=== PATIENT | female | born 1975 | race Caucasian/White ===

== ENCOUNTER 2025-01-25 09:03 | Observation (INO) ==
--- NOTE | 2024-12-27 11:04 | PAT Medication Instructions ---
Medication Instructions Date of Service December 27, 2024 Home Medications ascorbic acid (vitamin C) 500 mg capsule 500 mg PO DAILY aspirin 81 mg chewable tablet 81 mg PO HS atorvastatin 40 mg tablet 40 mg PO HS ferrous sulfate 325 mg (65 mg iron) tablet (Feosol) 325 mg PO DAILY metformin 500 mg tablet 500 mg PO BID semaglutide 2 mg/dose (8 mg/3 mL) subcutaneous pen injector (Ozempic) 2 mg subcut WK spironolactone 25 mg tablet 25 mg PO QAM albuterol sulfate 90 mcg/actuation aerosol inhaler 1 inh inhalation QID PRN Wheezing ASK your prescriber and surgeon aspirin 81 mg chewable tablet 81 mg PO HS STOP 7 days prior to surgery (if okay with prescriber) semaglutide 2 mg/dose (8 mg/3 mL) subcutaneous pen injector (Ozempic) 2 mg subcut WK DO NOT take the morning of surgery ascorbic acid (vitamin C) 500 mg capsule 500 mg PO DAILY ferrous sulfate 325 mg (65 mg iron) tablet (Feosol) 325 mg PO DAILY metformin 500 mg tablet 500 mg PO BID spironolactone 25 mg tablet 25 mg PO QAM Take morning of surgery With a small sip of water, OTHERWISE NOTHING TO EAT OR DRINK AFTER MIDNIGHT: albuterol sulfate 90 mcg/actuation aerosol inhaler 1 inh inhalation QID PRN Wheezing (use if needed; please bring rescue inhaler with you to hospital day of surgery if possible) Take evening before surgery atorvastatin 40 mg tablet 40 mg PO HS metformin 500 mg tablet 500 mg PO BID albuterol sulfate 90 mcg/actuation aerosol inhaler 1 inh inhalation QID PRN Wheezing (if needed) Other Notes If you have any questions please call us at [phone] or [phone] or [phone] or [phone]
--- NOTE | 2025-01-01 14:47 | Anesthesiology Consultation ---
Date of Service January 01, 2025 Assessment & Plan (1) Encounter for pre-operative examination: - Infectious disease screening: Per assessment on 01/01/25- No known recent infectious disease contacts or current infectious disease symptoms. - Outpatient joint assessment: Pt currently scheduled for inpatient pathway. If surgeon requests review for outpatient joint pathway, patient is not recommended candidate for outpatient joint program from anesthesia standpoint based on available information. - Semaglutide instructions: Patient informed by PAT to stop 7 days prior to surgery- voiced understanding. DOS 01/25. Advised last dose to be 01/13. - Check BSG DOS - Check coags DOS: Received message that preop coags hemolyzed. Message sent to surgeon's office to make them aware. Received response that surgeon wishes for coags redraw to be done DOS- order placed. - Hx neuraxial issues: Patient reports severe headache (presumed spinal headache) after neuraxial anesthesia with remote, initial . Patient description of events sounds like patient had subsequent blood patch for CSF leak. Patient indicates neuraxial anesthesia used with subsequent c-sections without issue. Chart Review Chart Review: Acceptable Risk for Surgery and Patient seen in Pre Admission Testing Teaching & Discussion Pre-Anesthesia Teaching/Discussion Notes: Instructed NPO after midnight before surgery,except medications with 15 cc of water. Medication instructions provided according to the PAT guidelines. History Surgery Operation Date: 01/25/25 10:00 Proposed Procedures p Left Total Knee Arthroplasty - Reuben Haq, Height/Weight Height: 5 ft 9 in Weight: 133 kg Allergies Allergy/AdvReac Type Severity Reaction Status Date / Time aspirin Allergy Nosebleeds Verified 01/01/25 15:21 with high doses (tolerates lower dose) Medications Home Medications Medication Instructions Recorded Confirmed Last Taken ascorbic acid (vitamin C) 500 mg 500 mg PO DAILY 09/11/24 12/27/24 Unknown capsule aspirin 81 mg chewable tablet 81 mg PO HS 09/11/24 12/27/24 Unknown atorvastatin 40 mg tablet 40 mg PO HS 09/11/24 12/27/24 Unknown ferrous sulfate 325 mg (65 mg 325 mg PO DAILY 09/11/24 12/27/24 Unknown iron) tablet (Feosol) metformin 500 mg tablet 500 mg PO BID 09/11/24 12/27/24 Unknown semaglutide 2 mg/dose (8 mg/3 mL) 2 mg subcut WK 09/11/24 12/27/24 Unknown subcutaneous pen injector (Ozempic) spironolactone 25 mg tablet 25 mg PO QAM 09/11/24 12/27/24 Unknown albuterol sulfate 90 mcg/actuation 1 inh inhalation QID PRN Wheezing 12/27/24 12/27/24 Unknown aerosol inhaler Past Medical History Medical History Acne Reason for spironolactone per patient Anxiety No meds Asthma Diabetes Hyperlipidemia Iron deficiency anemia Morbid obesity Osteoarthritis Exercise / Class Metabolic Activity II 4-5 Yardwork/Stairs/Walk up hill Past Family History Family History Father Lung cancer Diabetes Heart disease Past Surgical History Surgical History H/O wisdom tooth extraction History of section x3 Hx of hernia repair Past Anesthesia History No Family Hx of Anesthesia Complications and Other * Patient reports severe headache (presumed spinal headache) after neuraxial anesthesia with remote, initial . Patient description of events sounds like patient had subsequent blood patch for CSF leak. Patient indicates neuraxial anesthesia used with subsequent c-sections without issue. History of PONV No Hx of PONV Social History Smoking Status: Never smoker Do You Dip or Chew Tobacco: No Hx Alcohol Use: Yes alcohol intake frequency: holidays/special occasions only Hx Substance Use: No substance use type: does not use Review of Systems Chronic cough x years, at baseline. Patient denies chest pain, shortness of breath, dyspnea on exertion, fever, chills, wheezing, palpitations. Physical Exam Vital Signs BP 114/75 P 67 TEMP 98.3 SP02 97%RA RESP 16 Physical Full cervical extension range of motion. Full TMJ range of motion. TMD >3.5 finger breaths Mallampati Score II Dentition: missing molars Lungs: clear throughout to auscultation Cardiac: regular rate and rhythm, no murmurs noted Spine: normal Carotid arteries: negative bruit Extremities: no LE edema Lab Results Anesthesia Preop Results Results Anesthesia Widget: WBC 7.82 K/ul (4.8-10.8) 01/01/25 Hgb 13.7 g/dl (12.0-16.0) 01/01/25 Hct 41.2 % (37.0-47.0) 01/01/25 Plt 310 K/uL (130-400) 01/01/25 Na 137 mmol/L (136-145) 01/01/25 K 3.9 mmol/L (3.5-5.1) 01/01/25 Cl 106 mmol/L (98-107) 01/01/25 CO2 26 mmol/L (21-32) 01/01/25 BUN 9 mg/dl (6-23) 01/01/25 Creat 0.60 mg/dl (0.6-1.2) 01/01/25 Glucose Level 83 mg/dl (70-99(Fasting)) 01/01/25 HA1c 5.4 % (4.5-5.6) 01/01/25 Blood Type A Positive 01/01/25 Antibody Screen NEGATIVE 01/01/25 Testing Electrocardiogram Date: 10/15/24 Findings: + NSR @ (72) Chest X-Ray Date: 01/01/25 IMPRESSION: 1. No definite consolidation or pleural effusion is seen. 2. Mild to moderate degenerative changes in the thoracic spine.
[~2025-01-25 09:03] MED LIST: BUPIVACAINE 0.25% PF 30 ML VIAL ONE; BUPIVACAINE 0.5 % 5 MG/1 ML PF 10ML VIAL ONE; DEXAMETHASONE SOD INJ 4 MG/ML VIAL ONE; EPINEPHrine INJ 1 MG/ML AMP ONE
[2025-01-25] MEDS ORDERED: MIDAZOLAM HCL 1 MG/ML 2ML VIAL ONE ×3 (09:34→11:50)
[2025-01-25] MEDS ORDERED: LIDOCAINE 2% 2 ML VIAL/AMP(20MG/ML) INFIL ONE (09:35)
[2025-01-25] MEDS ORDERED: fentaNYL citrate PF 100 MCG/2 ML VIAL ONE (09:35)
[2025-01-25] MEDS ORDERED: ONDANSETRON INJ 2 MG/ML 2 ML VIAL ONE (09:36)
[2025-01-25] MEDS ORDERED: PROPOFOL IV EMULSION 10 MG/ML 20 ML VIAL IV ONE ×3 (09:36→12:25)
[2025-01-25] MEDS: ACETAMINOPHEN 500 MG TAB PO SCH ×3 (09:42→22:19)
[2025-01-25] MEDS: FAMOTIDINE 20 MG TAB PO SCH (09:42)
[2025-01-25] MEDS: GABAPENTIN 900 MG DOSE PO SCH (09:42)
[2025-01-25] MEDS: dexAMETHasone**PF** 10 MG/ML VIAL IV SCH (09:42)
[2025-01-25] MEDS: LR 60ML/HR IV SCH (09:42)
[2025-01-25] MEDS: LR 500ML BOLUS, THEN 15ML/HR IV SCH (10:05)
[2025-01-25 10:19] LABS: Partial Thromboplastin Ratio 1.1; Partial Thromboplastin Time 29 Seconds (21-31); Prothrombin Time 10.9 Seconds (9.0-12.0)
--- NOTE | 2025-01-25 10:19 | History & Physical Bridge Note ---
Date of Service January 25, 2025 History & Physical Bridge Note I have examined the patient, reviewed the History & Physical and in the interval since the performance of the History & Physical I have noted the following changes of clinical significance: no changes noted
[2025-01-25] MEDS ORDERED: PROMETHAZINE HCL 6.25 MG in SODIUM CHLORIDE 0.9% 50 ML IV PRN (10:27)
[2025-01-25] MEDS ORDERED: ePHEDrine sulfate 50 MG/ML AMP IV PRN (10:27)
[2025-01-25] MEDS ORDERED: ONDANSETRON INJ 2 MG/ML 2 ML VIAL IV PRN ×2 (10:27→16:06)
[2025-01-25] MEDS ORDERED: fentaNYL citrate PF 100 MCG/2 ML VIAL IV PRN (10:27)
[2025-01-25] MEDS ORDERED: ATROPINE SULFATE 0.1 MG/ML 10ML SYR IV PRN (10:27)
[2025-01-25] MEDS: TRANEXAMIC ACID 1,000 MG **IV Pre-op IV SCH (10:44)
[2025-01-25] MEDS: ceFAZolin 3000MG 3,000 MG/72.5 ML BAG IV SCH (11:30)
[2025-01-25] MEDS: ROPIV 0.5% 246mg, Ketorolac 30mg, EPINEPHrine 0.5mg in NSS INFIL SCH (12:04)
[2025-01-25] MEDS: ORTHO JOINT ANESTHETIC ONE (12:04)
[2025-01-25] MEDS: TRANEXAMIC ACID 1,000 MG **IV Intra-op IV SCH (12:07)
[2025-01-25] MEDS ORDERED: PHENYLEPHRINE 100MCG/ML 10ML SYR IV ONE (12:09)
--- OUTSIDE RECORDS SUMMARY | 2025-01-25 12:14 | External Medical Summary | Summary of Care ---
Author Name Unknown Organization [facility] Address [address] [place] [address] Phone [phone] Care Team Providers Care Floor Refinisher Name Role Phone Jose L Velez MD Primary Care Prov ider Reason for Visit * Reason Comments eRx-Medication Refill Encounter Details Date Type Department Care Team (Late st Contact Info) Description 01/22/2025 Refill Family Medicine [address] [id number] Chico Whalen MD [address] [place] [address] [place] [address] Asthma with severity to be determined Allergies No known active allergiesdocumented as of this encounter (statuses as of 01/23/2025) Medications Aspirin 81 MG Oral Tablet ChewableIndicati ons:Type 2 diabetes mellitus with hemoglobin A1c goal of less than 7.0% ([facility]) Take 1 Tab by mouth daily. with food. 90 Tab 1 08/11/20 21 Active Ferrous Sulfate 325 (65 Fe) MG Oral Tablet (Feosol) Take 1 Tablet by mouth in the morning and 1 Tablet before bedtime. 08/31/20 23 Active Vitamin C 500 MG Oral Tablet Chewable Take 1 Tablet by mouth in the morning. Active Ozempic (2 MG/DOSE) 8 MG/3ML Subcutaneous Solution Pen-injector (Semaglutide (2 MG/DOSE))Indicat ions:Type 2 diabetes mellitus with hemoglobin A1c goal of less than 7.0% (HCC),Morbid obesity due to excess calories (HCC) Inject 2 mg under the skin once a week. 9 mL 3 08/08/20 24 Active Atorvastatin Calcium 40 MG Oral Tablet (Lipitor)Indicat ions:Hyperlipide karely with target LDL less than 70 TAKE ONE TABLET BY MOUTH AT BEDTIME 90 Tablet 3 10/09/20 24 Active metFORMIN HCl ER 500 MG Oral Tablet Extended Release 24 Hour (Glucophage XR)Indications:T ype 2 diabetes mellitus with hemoglobin A1c goal of less than 7.0% (HCC) Take 1 Tablet by mouth in the morning and 1 Tablet before bedtime. 180 Tablet 3 10/15/20 24 Active Spironolactone 25 MG Oral Tablet (Aldactone)Indic ations:Hydradeni tis TAKE ONE TABLET BY MOUTH IN THE MORNING 90 Tablet 3 12/18/19 25 Active Albuterol Sulfate HFA 108 (90 Base) MCG/ACT Inhalation Aerosol SolutionIndicati ons:Asthma with severity to be determined INHALE TWO PUFFS BY MOUTH EVERY 4 HOURS NEEDED FOR wheezing 6.7 g 5 01/24/20 25 Active Albuterol Sulfate HFA 108 (90 Base) MCG/ACT Inhalation Aerosol SolutionIndicati ons:Asthma with severity to be determined INHALE TWO PUFFS EVERY 4 HOURS NEEDED FOR WHEEZING. Please dispense 1 inhaler 8 g 5 10/13/20 22 025 Discontinued documented as of this encounter (statuses as of 01/23/2025) Active Problems Problem Noted Date Diagnosed Date Diabetic retinopathy 05/18/2023 Overview (10/26/2024): Diabetic retinopathy seen on scan of 05/17/23, but not on scan of 10/15/24 Asthma with severity to be determined 11/16/2022 Primary osteoarthritis of both knees 11/16/2022 Class 3 severe obesity due t o excess calories with serious comorbidity and body mass index (BMI) of 40.0 to 44.9 in adult 11/16/2022 Hyperlipidemia with target LDL less than 70 07/08 Hydradenitis 06/24/2020 Type 2 diabetes mellitus wit h hemoglobin A1c goal of less than 7.0% 01/09/2020 Venous insufficiency 08/23/2016 documented as of this encounter (statuses as of 01/23/2025) Resolved Problems Problem Noted Date Diagnosed Date Resolved Date Body mass index (BMI) of 40. 0 to 44.9 in adult 10/18/2022 12/22/2022 Overview: Per Obesity protocol - Per Obesity protocol - Per Obesity Protocol, #19 Body mass index (BMI) of 45. 0 to 49.9 in adult 11/16/2021 10/21/2022 Overview: Per Obesity protocol - Per Obesity Protocol, #19 Intermittent asthma with rel iever use up to twice per week 04/30/2021 11/23/2023 Intermittent asthma with rel iever use up to twice per week without complication 05/04/201004/08 Overview (04/28/2022): Update needed - Per Asthma Taxonomy ICD-10 update of inactive term Morbid obesity with BMI of 50.0-59.9, adult 04/21/2010 11/19/2021 Overview (04/21/2010): Per Obesity Protocol, #19 Asthma, allergic 08/05/2003 05/04/2010 documented as of this encounter (statuses as of 01/23/2025) Immunizations Name Administration Dates Next Due COVID-19 mRNA, LNP-s, No Pre serve, 2-Dose Series (Moderna) 03/25/2021,02/25/2021 Hepatitis B, 20+ yrs 05/25/2021,01/21/2021,07/24 PPD 03/02/2010 Pneumococcal Polysaccharide PPV23 (Pneumovax) 05/15/2012 Seasonal Influenza Vac., MDV , IM, 0.5 mL (Fluzone) 07/28/2011 TD, Preservative Free 11/12/2021 TDAP, Age 7 and older, IM (Adacel) 07/28/2011 documented as of this encounter Social History Tobacco Use Types Packs/Day Years Used Date Smoking Tobacco: Never Smokeless Tobacco: Never Alcohol Use Standard Drinks/Week Comments No 0 (1 standard drink = 0.6 oz pur e alcohol) PHQ-2 Answer Date Recorded PHQ-2 Score 0 01/07/2020 Hunger Vital Sign Answer Date Recorded Worried About Running Out of Food in the Last Ye ar Never true 01/07/2020 Ran Out of Food in the Last Year Never true 01/07/2020 Comments No Sex and Gender Information Value Date Recorded Sex Assigned at Not on file Legal Sex Female 7:19 AM EST Gender Identity Not on file Sexual Orientation Not on file documented as of this encounter Miscellaneous Notes * Telephone Encounter - Yossi Aiken [facility] - 01/23/2025 1:44 PM EDTSigned Prescriptions: Disp Refills Albuterol Sulfate HFA 108 (90 Base) MCG/AC*6.7 g 5 Sig: INHALE TWO PUFFS BY MOUTH EVERY 4 HOURS NEEDED FOR wheezingAuthorizing Provider: JOSE L VELEZ User: YOSSI AIKEN documented in this encounter Plan of Treatment Upcoming Encounters Date Type Department Care Team (Late st Contact Info) Description 06/24/2025 3:40 PM EDT Office Visit Family Medicine [address] [place] [address] Jose L Velez MD [address] [place] [address] [place] [address] Health Maintenance Due Date Last Done Comments Pneumococcal Vaccine: 50+ Years (2 of 2 - PCV) 05/15/2013 05/15/2012 Cologuard 2019 Colonoscopy 2019 Colorectal Cancer Screening 2019 Fecal Occult Blood Test 2019 Sigmoidoscopy 2019 Depression Screening 01/06/2021 01/07/2020 Zoster Vaccines (1 of 2) 2024 COVID-19 Vaccine (3 - 2023- season) 2024 03/25/2021, 02/25/2021 Influenza Vaccine (FLU shot) (#1) 2024 07/28/2011 B-12 07/28/2024 07/28/2023, 07/0 11/2021, 07/18/2020 HbA1c 11/29/2024 05/29/2024, 07/09, 11/19/2022, Additional history exists Mammogram 12/27/2024 12/27/2023, 12/09, 05/19/2022, Additional history exists GFR 05/29/2025 05/29/2024, 07/09, 11/19/2022, Additional history exists Albumin/Creatinine Ratio 10/15/2025 024, 07/28/2023, 05/11/2022, Additional history exists Diabetic Eye Exam 10/15/2025 10/15/2024, , 05/17/2023, Additional history exists Diabetic Foot Exam 10/15/2025 10/15/2024, 0 05/17/2023, 05/11/2022, Additional history exists Pap Smear 12/15/2026 12/15/2023, 06/07, 06/24/2020 Cervical Cancer Screening 12/15/2028 HPV/Co-Test 12/15/2028 12/15/2023 Lipid Panel 05/29/2029 05/29/2024, 07/09, 05/07/2022, Additional history exists DTap/Tdap Vaccines (3 - Td or Tdap) 11/12/2031 11/12/2021, 07/28/2011 Hepatitis B Vaccine Completed 05/25/2021, 01/21/2021, 07/24/2020 HIV Screening Discontinued HPV (Gardasil) Vaccine Aged Out No lo nger eligible based on patient's age to complete this topic Hepatitis C Screening Discontinued MENINGOCOCCAL (MENACTRA/MENVEO) Aged Out No longer eligible based on patient's age to complete this topic Meningitis B Vaccine (Bexsero/Trumemba) Aged Out No longer eligible based on patient's age to complete this topic documented as of this encounter Medical Devices Not on filedocumented as of this encounter Visit Diagnoses Diagnosis Asthma with severity to be determined documented in this encounter Care Teams Floor Refinisher Relationship Specialty Start Date End Date Jose L Velez MD [address] [place] [address] [place] [address] PCP - General Family Medicine 06/24/20 documented as of this encounter
--- NOTE | 2025-01-25 12:43 | Operative Report ---
PG Post Operative Report Pre & Post Diagnosis Operation Date: 01/25/25 11:00 Pre-Op Diagnosis: Left Knee Arthritis Post-Op Diagnosis: Left Knee Arthritis I identified the patient and participated in the time-out.: Yes Procedure Operation Date: 01/25/25 11:00 Actual Procedures p Left Total Knee Arthroplasty, Cemented(Left) - Reuben Haq DO Surgeon Reuben Haq DO [employer] Jamaal Reynolds PA-C Estimated Blood Loss 50 Findings Consistent with Post-Op Diagnosis Specimens Left femoral and tibial bone Description of Procedure Implants used: I used a Anurag Persona total knee arthroplasty system with a size 10 PS femur, F tibia, 31 oval patella, and a size 16 CPS polyethylene bearing. All components were cemented in place with Biomet cement. Angela arrived [facility] for the above procedure. She was seen in the preoperative holding area and the operative extremity was identified and signed. She was given a preoperative antibiotic, TXA, a spinal anesthetic and an adductor nerve block. She was taken back to the operating room and laid on the table in supine position. She was given basic sedation. The operative knee was then prepped and draped in sterile fashion. A timeout was done, and the patient and the operative extremity was properly identified. A midline incision was made directly over the patella. Dissection was taken down to the extensor mechanism. A medial parapatellar arthrotomy was used. The medial retinaculum was released and the fat pad was mostly excised. The knee was flexed and the ACL, PCL, and meniscus were removed. A drill was sent down the center of the femoral canal followed by an intramedullary florinda. Off that florinda a distal femoral cutting block was placed. 9 mm was resected off the distal femur at 5 of valgus. A posterior referencing AP sizing guide was then placed on the distal femur. The femur measured to be a size 10. 2 drill holes were placed in 3 of external rotation. A 4-in-1 cutting block was then impacted into place. Anterior, posterior, and chamfer cuts were then made. The proximal tibia was then exposed. An external tibial alignment guide was placed. A tibial cut guide was then anchored in place and the proximal tibia was then resected. The posterior aspect of the knee was then opened up and any additional meniscus fragments and osteophytes were removed. The tibia measured to be a size F. The tibial plate was then placed in the appropriate rotation and the tibia was drilled and punched. Trial components were then placed. I used a size 16 CPS polyethylene insert. The knee was brought through a full range of motion and felt to be stable. The peg holes for the femoral component were then drilled. The patella was then everted and 9 mm was resected off the posterior aspect of the patella. The patella measured to be a size 31 oval. 3 peg holes were then drilled. A trial patella was placed. The knee was once again brought through a full range of motion and felt to be stable. Trial components were then removed. The surrounding soft tissues were injected with 100 cc of an orthopedic pain control cocktail. All components were then cemented into place with Biomet cement. The final polyethylene insert was then snapped into place. Once cement was dry the tourniquet was deflated. Hemost asis was obtained. A dilute betadyne lavage was then done for 3 minutes. The joint was then irrigated with normal saline solution. The medial parapatellar arthrotomy was then closed with #1 Vicryl suture. The skin was closed with 2-0 Vicryl, 3-0V lock suture, and sil. A soft compressive dressing was placed. She was then transferred to a hospital bed and taken to the postanesthesia care unit in stable condition. She tolerated the procedure well. Jamaal Reynolds PA-C, was present for the entire procedure. He was critical for patient positioning, prepping, draping, retraction exposure, wound closure and application of sterile dressing. I attest to the content of the Intraoperative Record and any orders documented therein. Any exceptions are noted below.
--- NOTE | 2025-01-25 13:24 | Anesthesiology Progress Note ---
Date of Service January 25, 2025 Anesthesia Post Procedure Vital Signs Vital Signs: Temp Pulse Pulse Resp BP Pulse Ox O2 Del Method 01/25/25 13:15 98 H 19 125/58 L 96 Oxymask 01/25/25 13:08 36.1 C L 106 H 19 122/53 L 97 Oxymask 01/25/25 09:26 36.8 C 80 18 144/78 H 99 Room Air O2 Flow Rate 01/25/25 13:15 5 01/25/25 13:08 5 01/25/25 09:26 Pain Intensity Left Knee: Pain Intensity: 2 Transfer of Care Handoff Completed per policy Notes Mental Status: alert / awake / arousable Patient Amnestic to Procedure: Yes Nausea / Vomiting: adequately controlled Pain: adequately controlled Airway Patency, RR, SpO2: stable & adequate BP & HR: stable & adequate Hydration State: stable & adequate Neuraxial Anesthesia: was administered and sensory block is resolving Anesthetic Complications: no major complications apparent and Pt Satisfied with anesthetic care
--- NOTE | 2025-01-25 13:33 | XRay Report ---
XR knee LT 1 or 2V routine CLINICAL HISTORY: Surgical Post Op COMPARISON: 12/02/2023 FINDINGS: Left knee prosthesis shows no hardware complication. There is expected soft tissue gas. Sk in sil are present. IMPRESSION: Unremarkable postoperative exam. ACT 112: Negative or not required by law. Electronically signed by: Herrera Chadwick M.D. 01/25/2025 1:32 PM
[2025-01-25] MEDS: ACETAMINOPHEN 1,000 MG/100 ML VIAL IV STA (14:15)
[2025-01-25] MEDS ORDERED: METOCLOPRAMIDE HCL INJ 5 MG/ML 2 ML VIAL IV PRN (16:06)
[2025-01-25] MEDS ORDERED: PHARMACY GLYCEMIC MGMT CONSULT PRN (16:06)
[2025-01-25] MEDS ORDERED: bisacodyL 10 MG SUPP PR PRN (16:06)
[2025-01-25] MEDS ORDERED: NALOXONE HCL 0.4 MG/1 ML VIAL/CARP IV PRN (16:06)
[2025-01-25] MEDS ORDERED: MAGNESIUM HYDROXIDE SUSP 30 ML UDC PO PRN (16:06)
[2025-01-25] MEDS ORDERED: NON-FORMULARY MEDICATION (Semaglutide [Ozempic] 2 mg/dose (8 mg/3 mL) pen injector) SQ SCH (16:06)
[2025-01-25] MEDS ORDERED: HYDROmorphone INJ 0.5 MG/0.5 ML SYR IV PRN (16:06)
[2025-01-25] MEDS: ACETAMINOPHEN 1000 MG/100 ML IV IV ONE (16:27)
[2025-01-25] MEDS: KETOROLAC TROMETHAMINE 15 MG/ML VIAL IV SCH (17:31)
[2025-01-25] MEDS: INSULIN ASPART PER UNIT CHARGE SC SCH (18:29)
[2025-01-25] MEDS: oxyCODONE HCL IR 5 MG TAB (IMMEDIATE RELEASE) PO PRN (19:40)
[2025-01-25] MEDS: ceFAZolin 2000MG 2,000 MG/15 ML SYR IV SCH (19:40)
[2025-01-25] MEDS ORDERED: metFORMIN HCL 500 MG TAB PO SCH (21:00)
[2025-01-25] MEDS: SENNA 8.6 MG TAB PO SCH (21:10)
[2025-01-25] MEDS: DOCUSATE SODIUM 100 MG CAP PO SCH (21:10)
[2025-01-25] MEDS: ATORVASTATIN 40 MG TAB PO SCH (21:10)
[2025-01-25] MEDS: ASPIRIN 81 MG ECTAB PO SCH (21:10)
[2025-01-25] MEDS ORDERED: DEXTROSE 50% 50 ML SYRINGE IV PRN (22:45)
[2025-01-25] MEDS ORDERED: GLUCOSE 40% GEL 15 GM TUBE PO PRN (22:45)
[2025-01-25] MEDS ORDERED: CARBOHYDRATES FOR HYPOGLYCEMIA PO PRN (22:45)
[2025-01-25] MEDS ORDERED: GLUCOSE 10 TAB/TUBE PO PRN (22:45)
[2025-01-25] MEDS ORDERED: GLUCAGON FOR INJ 1 MG VIAL SQ PRN (22:45)
[2025-01-26 03:50] VITALS: O2SAT 97
--- NOTE | 2025-01-26 07:05 | Orthopedic Progress Note ---
Date of Service January 26, 2025 Assessment & Plan (1) Status post left knee replacement: Overall she is doing very well. She is not having much pain in the left knee. She will be seen by physical therapy today for ambulation and range of motion exercises. She is on aspirin for DVT prophylaxis. The nursing staff can change her dressing after physical therapy. She can be discharged to home later today. She will follow-up orthopedics in 2 weeks. Ramone Miller was seen and examined at bedside this morning. Overall she is doing very well. She is not having much pain in the left knee. She has been up and ambulating to the bathroom. She has no complaints.. Review of Systems All systems reviewed & are unremarkable except as noted in HPI & below. Physical Exam On physical exam of the left knee, the dressing is clean and dry. Her leg is out full extension. She has active dorsiflexion plantarflexion of her left ankle.. Results & Data Results & Data Laboratory Results . Diagnostic Findings Postoperative x-rays of the left knee show the prosthesis to be in anatomic alignment without any evidence of fracture, dislocation, or loosening.. PG Care Time/CCT Total # of Minutes Spent Total Time Spent with Patient: Total time spent is greater than 50% in coordination of care (as documented) at patient's floor/unit and/or counseling patient: Coding Level of Care Code 50107 Post Operative Follow-Up Diagnoses Status post left knee replacement Z96.652
--- NOTE | 2025-01-26 07:06 | Discharge Summary ---
Date of Service January 26, 2025 Principal Diagnosis Same as "Discharge Diagnosis" noted below under Discharge Instructions. Discharge Exam On physical exam of the left knee, the dressing is clean and dry. Her leg is out full extension. She has active dorsiflexion plantarflexion of her left ankle.. Discharge Data Procedures Performed Operation Date: 01/25/25 11:00 Actual Procedures p Left Total Knee Arthroplasty, Cemented(Left) - Reuben Haq DO Ordered Studies 01/25/25 05:00 US - OR guided needle placemen Routine Hospital Course (1) Status post left knee replacement: On January 25, 2025 Angela arrived at [facility] and underwent a left knee replacement without complication. She had a spinal anesthetic. Postoperatively, she was started on aspirin for DVT prophylaxis and transferred to the general orthopedic floors. Her hospital course was uneventful. On postop day #1, her vital signs were stable and her pain was well-controlled. She was able to participate well with physical therapy doing ambulation and range of motion exercises. She was then discharged to home. She will follow-up with orthopedics in 2 weeks. PG Care Time/CCT Total # of Minutes Spent Total Time Spent with Patient: Total time spent is greater than 50% in coordination of care (as documented) at patient's floor/unit and/or counseling patient: Discharge Plan Discharge Items Patient Disposition: Home - Self-Care Reason For Visit: Arthritis Knee Left Discharge Diagnosis: Left knee replacement Activity: Per Instructions section Non-emergency contact: Surgeon Call non-emergency contact if: your wound has increased redness and your wound has increased drainage Follow-up/Referrals: Kenia Blakely MD [Primary Care Provider] - Diet: Regular Ambulatory Orders: Hemoglobin A1C (Glycosylated) (Routine) Timeframe: 1 Day Location: Determined by Patient Ordered By: Pauline Husain Attending Provider Instructions: Activity and Therapy Recommendations: * If you are using [facility] then therapy will be provided at your home until they feel you have accomplished all of your goals. * If you are using [facility] then Physical Therapy will be provided until they feel you are ready to start Outpatient Physical Therapy. * If you are not using home therapy then Outpatient Physical Therapy should start about 3-5 days from your day of surgery. Therapy will last about 6-10 weeks * It is important not to put a pillow under your knee when you are relaxing or sleeping. It is just as important to make sure you are getting your knee perfectly straight as it is to regain your knee bend. * You were shown a series of exercises in the hospital. Do these exercises three times each day including the exercises you were shown in physical therapy. * Get up and walk several times each day. For the first four weeks, try not to stand or walk for more than one hour at a time. If you do stand or walk for more than one hour, you will not hurt anything, but your leg will likely swell. * As you feel comfortable, you may change from the walker or crutches to a cane and then to independent walking. Medications: * Narcotic You will likely be sent home from the hospital with a prescription for the narcotic pain medication that worked best throughout your stay. * Cefadroxil -take the antibiotic twice a day for 10 days to help prevent infection. * Aspirin Most patients will be required to take Aspirin 81mg twice a day for 6 weeks after surgery. This is obtained [id number] and a prescription is not necessary. * Other medications may be prescribed for specific circumstances. If you have any questions, please call the office at . * Resume previous home medications unless otherwise instructed TEDs/Elastic Stockings: The white elastic stockings help limit swelling and prevent blood clots from forming in your legs.~ The more you wear them, the more they work. Wear them for 2 weeks. Dressing Care: The dressing can be changed after physical therapy on postop day #1. Daily dry dressing changes for a few days, especially if the incision is still draining some. If the incision is not draining then you may leave the sil open to air. If there is a little bit of drainage or if the sil are getting stuck on your clothing then cover the incision with a dry dressing. The sil will be removed at your 2 week follow-up appointment. Showering: You may shower 5 days from the day of surgery as long as the incision is no longer draining. You may shower with the sil exposed. Let soapy water run over the sil and pat them dry. Do not scrub or soak the incision. Diet: You may resume your previous diet. Things To Watch For: * Drainage from the incision site that occurs more than one week after your surgery. * Increased redness at the incision site. * Fever above 102 degrees Fahrenheit. * Unusual chest pain or shortness of breath. * Call [facility] at with any of the above problems Follow-Up Visit: Follow-up with Dr. Haq's office 2-3 weeks after your day of surgery. We will remove your sil and answer any questions. If you have any additional questions or concerns, Dr Haq is usually in the office at the same time and will be available An appointment was probably scheduled when you signed-up for surgery in the office. If you have any questions call Office Instructions: More detailed instructions as well as Frequently Asked Questions were provided in a folder by our office when you signed-up for surgery. Please review these instructions when you get home. If you have any further questions or concerns, please feel free to call the office at [phone] Pending Studies at Discharge: No Stand-Alone Forms: My [facility] Medications and DC Order Prescriptions: New cefadroxil 500 mg capsule 500 mg PO BID 10 Days Qty: 20 0RF aspirin [Adult Aspirin Regimen] 81 mg tablet,delayed release (DR/EC) 81 mg PO BID Qty: 84 0RF oxycodone 5 mg tablet 5 mg PO Q6H PRN (Reason: pain) Qty: 30 0RF Continued metformin 500 mg tablet 500 mg PO BID spironolactone 25 mg tablet 25 mg PO QAM atorvastatin 40 mg tablet 40 mg PO HS ascorbic acid (vitamin C) 500 mg capsule 500 mg PO DAILY ferrous sulfate [Feosol] 325 mg (65 mg iron) tablet 325 mg PO DAILY Ozempic 2 mg/dose (8 mg/3 mL) pen injector 2 mg subcut WK Patient Comments: takes on Sundays last dose 01/13/25 aspirin 81 mg tablet,chewable 81 mg PO HS albuterol sulfate 90 mcg/actuation Hfa Aerosol Inhaler 1 inh INHALATION QID PRN (Reason: Wheezing) Discharge Orders: Discharge Order (Routine); Ordered 01/26/25 Ordered By: Reuben Haq Admission Data Admit Date/Time: 01/25/25 13:11 Attending Provider: Reuben Haq Admit Provider: Reuben Haq Primary Care Provider: Kenia Blakely
[2025-01-26 07:27] VITALS: BP 108/69; PULSE 65; RESP 18; TEMP 98.1
[2025-01-26] MEDS: MULTIVITAMIN TAB PO SCH (07:42)
== END 2025-01-26 12:35 | disposition home health service (06) ==
LOC: ASU 09:03 → 3N 09:03
DX: E11.9 Type 2 diabetes mellitus without complications; Z79.84 Long term (current) use of oral hypoglycemic drugs; Z79.82 Long term (current) use of aspirin; E66.9 Obesity, unspecified; Z79.899 Other long term (current) drug therapy; M17.12 Unilateral primary osteoarthritis, left knee; J45.909 Unspecified asthma, uncomplicated; M65.98 Unspecified synovitis and tenosynovitis, other site; Z79.85 Long-term (current) use of injectable non-insulin antidiabetic drugs; Z68.41 Body mass index [BMI] 40.0-44.9, adult; Z88.6 Allergy status to analgesic agent; M25.762 Osteophyte, left knee